=== PATIENT | female | born 1995 | race Hispanic/Latino ===

== ENCOUNTER 2018-02-14 11:16 | Emergency (ER) | payer MEDICAID, OTHER ==
[~2018-02-14 11:16] MED LIST: DOCU-116 PO; IBUP-2077 PO
[2018-02-14] MEDS ORDERED: ONDANSETRON ODT 4 MG TAB ONE (11:48)
[2018-02-14 12:01] LABS: BASOPHILS % (AUTO) 0.4 % (0.0-5.0); EOSINOPHILS % (AUTO) 0.9 % (0.0-8.0); HEMATOCRIT 41.1 % (36-48); LYMPHOCYTES % (AUTO) 17.1 % (21.0-51.0); MEAN CORPUSCULAR HEMOGLOBIN 27.9 pg (27.0-33.0); MONOCYTES % (AUTO) 4.7 % (3.0-13.0); NEUTROPHILS % (AUTO) 76.9 % (40.0-77.0); PLATELET COUNT (AUTO) 422 K/uL (130-400); RED BLOOD CELL COUNT(AUTO) 5.01 MIL/uL (4.00-5.50); RED CELL DISTRIBUTION WIDTH 13.3 % (11.0-15.5)
[2018-02-14 12:08] LABS: APPEARANCE,URINE Clear (CLEAR); BILIRUBIN,URINE Negative (NEGATIVE); COLOR,URINE Yellow (YELLOW); CREATININE 0.7 mg/dL (0.5-1.5); GLUCOSE, URINE (UA) Negative (NEGATIVE); KETONES,URINE Negative (NEGATIVE); LEUKOCYTE ESTERASE ,URINE Negative (NEGATIVE); NITRATE,URINE Negative (NEGATIVE); OCCULT BLOOD,URINE Negative (NEGATIVE); POTASSIUM 3.9 mmol/L (3.5-5.1); PROTEIN,URINE Negative (NEGATIVE); UROBILINOGEN,URINE 0.2 mg/dL (0.2-1.0)
[2018-02-14] MEDS ORDERED: SODIUM CHLORIDE 0.9% 1000ML 1,000 ML IV ONE (12:10)
[2018-02-14 12:11] LABS: HCG,QUAL RESULT NEGATIVE (NEGATIVE)
[2018-02-14 12:49] LABS: AMPHET/METH SCREEN,URINE NEGATIVE (NEGATIVE); BARBITURATE SCREEN, URINE NEGATIVE (NEGATIVE); BENZODIAZEPINES SCREEN,URINE NEGATIVE (NEGATIVE); CANNABINOID SCREEN,URINE NEGATIVE (NEGATIVE); COCAINE SCREEN,URINE NEGATIVE (NEGATIVE); OPIATE SCREEN,URINE NEGATIVE (NEGATIVE); PHENCYCLIDINE SCREEN,URINE NEGATIVE (NEGATIVE)
== END 2018-02-14 14:11 | disposition home or self-care (01) ==
LOC: EDH 11:16
DX: R55 Syncope and collapse (principal); R42 Dizziness and giddiness; R11.0 Nausea; F41.9 Anxiety disorder, unspecified
CPT/HCPCS: 36415; 80048; 80305; 81003; 81025; 85025; 93005; 96360; 99285; J7030

== ENCOUNTER 2018-08-01 14:04 | Emergency (ER) | payer BC | END 2018-08-01 14:39 | disposition home or self-care (01) | LOC: EDH 14:04 | DX: H10.023 Other mucopurulent conjunctivitis, bilateral (principal); R11.0 Nausea; Z98.890 Other specified postprocedural states ==

== ENCOUNTER 2019-12-09 20:15 | Emergency (ER) | payer BC | END 2019-12-09 21:07 | disposition home or self-care (01) | LOC: EDH 20:15 | DX: R42 Dizziness and giddiness (principal); R00.2 Palpitations; R20.2 Paresthesia of skin | CPT/HCPCS: 99281 ==

== ENCOUNTER 2022-10-25 17:28 | Emergency (ER) | payer BC, MEDICAID ==
[~2022-10-25] VITALS: Ht 162.6 cm; Wt 89.8 kg
[2022-10-25 17:46] VITALS: BP 121/58
[2022-10-25] MEDS ORDERED: ONDANSETRON 4MG INJ IVP ONE (19:30)
[2022-10-25] MEDS ORDERED: KETOROLAC 30MG VIAL (30MG/ML) IM ONE (19:30)
[2022-10-25] MEDS ORDERED: 0.9%NACL 1000ML 1,000 ML IV ONE (19:30)
[2022-10-25 19:39] LABS: BASOPHILS % (AUTO) 0.2 % (0.0-5.0); EOSINOPHILS % (AUTO) 0.1 % (0.0-8.0); HEMATOCRIT 42.4 % (36-48); LYMPHOCYTES % (AUTO) 8.2 % (21.0-51.0); MEAN CORPUSCULAR HEMOGLOBIN 27.5 pg (27.0-33.0); MEAN CORPUSCULAR HGB CONC 33.5 g/dL (32.0-36.0); MEAN CORPUSCULAR VOLUME 82.2 fL (79-99); MONOCYTES % (AUTO) 5.3 % (3.0-13.0); NEUTROPHILS % (AUTO) 85.7 % (40.0-77.0); PLATELET COUNT (AUTO) 371 K/uL (130-400); RED BLOOD CELL COUNT(AUTO) 5.16 MIL/uL (4.00-5.50); RED CELL DISTRIBUTION WIDTH 13.4 % (11.0-15.5); WHITE BLOOD COUNT (AUTO) 9.9 K/uL (4.8-10.8)
[2022-10-25 19:51] LABS: CREATININE 0.7 mg/dL (0.5-1.5); POTASSIUM 3.6 mmol/L (3.5-5.1)
[2022-10-25 19:54] LABS: ALBUMIN 3.9 g/dL (3.5-5.0); TOTAL PROTEIN, SERUM 7.7 g/dL (6.0-8.3)
[2022-10-25] MEDS ORDERED: ONDA4TAB10 PO (21:27)
[2022-10-25 21:48] LABS: APPEARANCE,URINE CLOUDY (CLEAR); BILIRUBIN,URINE NEGATIVE (NEGATIVE); COLOR,URINE YELLOW (YELLOW); GLUCOSE, URINE (UA) NEGATIVE (NEGATIVE); KETONES,URINE 60 mg/dL (NEGATIVE); LEUKOCYTE ESTERASE ,URINE 250 Leu/uL (NEGATIVE); NITRATE,URINE NEGATIVE (NEGATIVE); OCCULT BLOOD,URINE SMALL (NEGATIVE); PROTEIN,URINE 20 mg/dL (NEGATIVE); UROBILINOGEN,URINE 0.2 mg/dL (0.2-1.0)
[2022-10-25 21:53] LABS: HCG,QUALITATIVE URINE NEGATIVE (NEGATIVE)
[2022-10-25 21:55] LABS: BACTERIA,URINE RARE /HPF (None Seen); MUCUS,URINE FEW LPF (None Seen); SQUAMOUS EPITHELIAL CELL,UR MOD /HPF (0-2)
[2022-10-25] MEDS ORDERED: SULF1TAB42 PO (22:03)
== END 2022-10-25 22:22 | disposition home or self-care (01) ==
LOC: EDH 17:28
DX: K80.20 Calculus of gallbladder without cholecystitis without obstruction (principal); K76.89 Other specified diseases of liver; N39.0 Urinary tract infection, site not specified; R11.2 Nausea with vomiting, unspecified; Z79.899 Other long term (current) drug therapy
CPT/HCPCS: 99285; 96374; 76705; 96361; 80053; 84703; 83690; 85025; 87088; 81001; 81025; 36415; 96372; J7030; J2405; J1885

== ENCOUNTER 2024-05-07 06:21 | Inpatient (IN) | payer MEDICAID ==
[~2024-05-07] VITALS: Ht 162.6 cm; Wt 105.2 kg
[~2024-05-07 06:21] MED LIST changes: -DOCU-116 PO; -IBUP-2077 PO; +ONDA-243 PO; +SULF1TAB42 PO
[2024-05-07 06:56] LABS: MEAN CORPUSCULAR HEMOGLOBIN 28.6 pg (27.0-33.0); MEAN CORPUSCULAR VOLUME 81.6 fL (79-99); RED BLOOD CELL COUNT(AUTO) 4.41 MIL/uL (4.00-5.50); RED CELL DISTRIBUTION WIDTH 13.1 % (11.0-15.5); WHITE BLOOD COUNT (AUTO) 11.8 K/uL (4.8-10.8)
[2024-05-07] MEDS ORDERED: LIDOCAINE HCL 1% 20 ML VIAL ONE (07:00)
[2024-05-07] MEDS ORDERED: LACTATED RINGERS 1000ML 1,000 ML IV PRN (07:00)
[2024-05-07] MEDS ORDERED: MISOPROSTOL 200 MCG TABLET ONE (07:00)
[2024-05-07 07:07] LABS: APPEARANCE,URINE CLEAR (CLEAR); BILIRUBIN,URINE NEGATIVE (NEGATIVE); COLOR,URINE LIGHT-YELLOW (YELLOW); GLUCOSE, URINE (UA) NEGATIVE (NEGATIVE); KETONES,URINE 100 mg/dL (NEGATIVE); LEUKOCYTE ESTERASE ,URINE NEGATIVE Leu/uL (NEGATIVE); NITRATE,URINE NEGATIVE (NEGATIVE); OCCULT BLOOD,URINE MODERATE (NEGATIVE); PH,URINE 6.5 (5.0-8.0); PROTEIN,URINE 10 mg/dL (NEGATIVE); UROBILINOGEN,URINE 0.2 mg/dL (0.2-1.0)
[2024-05-07 07:09] LABS: ADD UA MICROSCOPIC YES
[2024-05-07 07:10] LABS: MUCUS,URINE RARE LPF (None Seen); SQUAMOUS EPITHELIAL CELL,UR FEW /HPF (0-2); WBC,URINE 0-1 /HPF (0-1)
[2024-05-07] MEDS ORDERED: ibuPROFEN 600 MG TABLET ONE (07:26)
[2024-05-07] MEDS: ibuPROFEN 600 MG TABLET PO PRN (07:27)
[2024-05-07] MEDS ORDERED: acetaMINOPHEN WITH coDEINE 1 TAB TAB PO PRN (07:30)
[2024-05-07] MEDS ORDERED: MEASLES/MUMPS/RUBELLA VACCINE, LIVE 0.5 ML/VIAL SQ PRN (07:30)
[2024-05-07] MEDS ORDERED: DIPH,PERTUSS(ACELL),TET VAC/PF 0.5 ML VIAL IM PRN (07:30)
[2024-05-07 09:05] LABS: HIV 1&2 ANTIBODY Non-Reactive (Negative)
[2024-05-07 09:06] LABS: HIV-1 p24 Antigen Non-Reactive (Negative)
[2024-05-07 09:46] LABS: RAPID PLASMA REAGIN NONREACTIVE (NONREACTIVE)
[2024-05-07 11:51] VITALS: BP 111/65; PULSE 68; RESP 18; TEMP 97.9
[2024-05-07] MEDS: BENZOCAINE/LANOLIN/ALOE VERA 60 ML AEROSOL TP PRN (12:28)
[2024-05-07] MEDS: acetaMINOPHEN 325 MG TAB PO PRN (12:28)
[2024-05-07] MEDS: LANOLIN 30GM OINTMENT TP PRN (12:29)
[2024-05-07] MEDS: WITCH HAZEL 1 PAD TP PRN (12:29)
[2024-05-07 15:40] VITALS: BP 107/71; PULSE 69; RESP 18; TEMP 97.8
[2024-05-07 19:29] VITALS: BP 115/69; PULSE 81; RESP 20; TEMP 97.1
[2024-05-07] MEDS: doCUSate SODIUM 100 MG CAP PO SCH (20:05)
[2024-05-07 23:36] VITALS: BP 108/64; PULSE 84; RESP 16; TEMP 97.7
[2024-05-08 03:29] VITALS: BP 137/75; PULSE 69; RESP 16; TEMP 97.3
[2024-05-08 07:07] LABS: MEAN CORPUSCULAR HEMOGLOBIN 27.5 pg (27.0-33.0); MEAN CORPUSCULAR HGB CONC 33.4 g/dL (32.0-36.0); MEAN CORPUSCULAR VOLUME 82.2 fL (79-99); RED BLOOD CELL COUNT(AUTO) 4.26 MIL/uL (4.00-5.50); RED CELL DISTRIBUTION WIDTH 13.3 % (11.0-15.5); WHITE BLOOD COUNT (AUTO) 10.1 K/uL (4.8-10.8)
[2024-05-08 07:58] VITALS: BP 107/71; PULSE 61; RESP 18; TEMP 97.9
[2024-05-08 11:52] VITALS: BP 125/68; PULSE 68; RESP 18; TEMP 98
== END 2024-05-08 14:00 | disposition home or self-care (01) | DRG 560 ==
LOC: EDH 06:21 → OBSVTOIN 06:22 → LDH 06:22 → WSH 15:22
PROVIDERS: ADMIT Obstetrics & Gynecology; ATTEND Obstetrics & Gynecology
PROC: 10E0XZZ Delivery of Products of Conception, External Approach (ICD-10-PCS; principal; 2024-05-07)
DX: O62.3 Precipitate labor (principal); Z37.0 Single live birth; Z3A.36 36 weeks gestation of pregnancy
CPT/HCPCS: 36415; 81001; 85027; 86592; 86701; 86850; 86900; 86901; 87340; 87390; G0378

== ENCOUNTER 2024-11-15 00:44 | Emergency (ER) | payer MEDICAID ==
[~2024-11-15] VITALS: Ht 160 cm; Wt 94.8 kg
--- NOTE | 2024-11-15 00:49 | NUR ---
UA CUP PROVIDED
[2024-11-15 01:23] LABS: BASOPHILS # (AUTO) 0.05 K/uL (0.00-0.20); BASOPHILS % (AUTO) 0.5 % (0.0-5.0); EOSINOPHILS # (AUTO) 0.17 K/uL (0.00-0.70); EOSINOPHILS % (AUTO) 1.6 % (0.0-8.0); HEMATOCRIT 38.8 % (36-48); IMMATURE GRANULOCYTE ABSOLUTE 0.04 K/uL (0-1); LYMPHOCYTES # (AUTO) 2.6 K/uL (1.0-4.8); LYMPHOCYTES % (AUTO) 23.9 % (21.0-51.0); MEAN CORPUSCULAR HEMOGLOBIN 28.4 pg (27.0-33.0); MEAN CORPUSCULAR HGB CONC 34.3 g/dL (32.0-36.0); MEAN CORPUSCULAR VOLUME 82.9 fL (79-99); MONOCYTES # (AUTO) 0.7 K/uL (0.1-1.0); MONOCYTES % (AUTO) 6.4 % (3.0-13.0); NEUTROPHILS # (AUTO) 7.3 K/uL (1.8-7.7); NEUTROPHILS % (AUTO) 67.2 % (40.0-77.0); PLATELET COUNT (AUTO) 391 K/uL (130-400); RED BLOOD CELL COUNT(AUTO) 4.68 MIL/uL (4.00-5.50); RED CELL DISTRIBUTION WIDTH 12.7 % (11.0-15.5); WHITE BLOOD COUNT (AUTO) 10.9 K/uL (4.8-10.8)
--- NOTE | 2024-11-15 01:25 | ERN ---
ED Note History of Present Illness Stated Complaint: EPIGASTRIC PAIN Chief Complaint: Abdominal Pain Time Seen by MD: 00:50 Dictation: This is a 29-year-old female who presented to the emergency room with severe epigastric pain and chest pain feeling hot with the pain radiating to the back. She stated that this started 15 minutes prior to the presentation to the ER and woke her from sleep she felt hot across the chest and even tried a shower which did not help. No nausea vomitings. No history of any hematemesis or melena. She ate hot Cheetos and ate a steak also had alcoholic drink. Patient has a history of drinking large amounts of coffee at least 3 to 4 times a day. Last coffee is before she goes to bed. Temperature 98 pulse 76 respirations 18 blood pressure 119/79 with a pulse oximetry of 98% on room air Allergies: Coded Allergies: No Known Allergies (Verified Allergy, Unknown, 07/10/17) No Known Drug Allergies (Unverified Allergy, Unknown, 07/10/17) Past Medical History Past Medical History: No Pertinent History Surgical History: Other Surgical History Other: eye surgery torn retina left, BREAST Family History: Negative Social History: ETOH LMP: Oct 31, 2024 : 5 Para: 5 Aborts: 0 RN Note Reviewed/Agreed w/PFSH: Yes Review of System Dictation Constitutional: Negative for fever,chills, and weight loss Eyes: Negative for injury, pain,redness, and discharge ENT: Negative for injury,pain or swelling Cardiovascular: Negative for chest pain, palpitations, and edema Respiratory: Negative for shortness of breath, cough, and wheezing, Abdomen/GI: Positive for epigastric abdominal pain with burning, denies nausea, vomiting, diarrhea, and constipation Back: Negative for injury and pain : Negative for injury, bleeding and discharge MS/Extremity: Negative for injury and deformity Skin: Negative for rash, and discoloration Neuro: Negative for headache, weakness, numbness, tingling, and seizure Psych: Negative for suicide ideation, homicidal ideation, and hallucinations Initial Vital Sign VS Vital Signs Date Time Temp Pulse Resp B/P (MAP) Pulse Ox O2 Delivery O2 Flow Rate FiO2 11/15/24 00:45 98.1 76 18 119/79 98 Room Air Physical Exam Dictation General: awake, alert, NAD obese female Head/Face: Normocephalic, atraumatic Eyes: PERRL, EOMI, vision at baseline ENT: oral cavity clear, TMs clear, no signs of infection Neck: Trachea midline, supple, no nuchal rigidity Cardiovascular: RRR, normal S1/S2, No MRGs, no JVD Respiratory: CTAB, no respiratory distress, No rales or wheezes Abdomen: Soft, mild epigastric tenderness r, non-distended, normal bowel sounds, no guarding or rebound. Skin: Warm, dry, normal turgor, no rash MS/Extremity: Pulses equal, no cyanosis, neurovascular intact, FROM Neuro: COAx4, GCS 15, strength 5/5, CN 2-12 intact, normal cerebellar exam, normal gait, Psych: Normal behavior, mood, and affect normal Extremities-trace edema without any palpable cords, Homans sign is negative Results (Laboratory/Radiology) Laboratory/Radiology Laboratory Tests Test 11/15/24 01:17 White Blood Count 10.9 K/uL (4.8-10.8) H Red Blood Count 4.68 MIL/uL (4.00-5.50) Hemoglobin 13.3 g/dL (12.0-16.0) Hematocrit 38.8 % (36-48) Mean Corpuscular Volume 82.9 fL (79-99) Mean Corpuscular Hemoglobin 28.4 pg (27.0-33.0) Mean Corpuscular Hemoglobin Concent 34.3 g/dL (32.0-36.0) Red Cell Distribution Width 12.7 % (11.0-15.5) Platelet Count 391 K/uL (130-400) Mean Platelet Volume 9.1 fL (7.5-10.5) Immature Granulocyte % (Auto) 0.4 % (0-1) Neutrophils (%) (Auto) 67.2 % (40.0-77.0) Lymphocytes (%) (Auto) 23.9 % (21.0-51.0) Monocytes (%) (Auto) 6.4 % (3.0-13.0) Eosinophils (%) (Auto) 1.6 % (0.0-8.0) Basophils (%) (Auto) 0.5 % (0.0-5.0) Neutrophils # (Auto) 7.3 K/uL (1.8-7.7) Lymphocytes # (Auto) 2.6 K/uL (1.0-4.8) Monocytes # (Auto) 0.7 K/uL (0.1-1.0) Eosinophils # (Auto) 0.17 K/uL (0.00-0.70) Basophils # (Auto) 0.05 K/uL (0.00-0.20) Absolute Immature Granulocyte (auto 0.04 K/uL (0-1) Nucleated Red Blood Cells 0.0 % (0.0-0.19) Sodium Level 136 mmol/L (136-145) Potassium Level 3.5 mmol/L (3.5-5.1) Chloride Level 101 mmol/L (101-111) Carbon Dioxide Level 30 mmol/L (21-32) Blood Urea Nitrogen 19 mg/dL (7-18) H Creatinine 1.0 mg/dL (0.5-1.0) Glomerular Filtration Rate Calc 77 mL/min (>90) Random Glucose 110 mg/dL (70-105) H Total Calcium 8.6 mg/dL (8.5-10.1) Total Bilirubin 0.4 mg/dL (0.2-1.0) Direct Bilirubin 0.1 mg/dL (0.0-0.3) Aspartate Amino Transf (AST/SGOT) 36 U/L (10-37) Alanine Aminotransferase (ALT/SGPT) 34 U/L (12-78) Alkaline Phosphatase 77 U/L (50-136) Total Protein 7.4 g/dL (6.0-8.3) Albumin 3.6 g/dL (3.5-5.0) Lipase 55 U/L (16-77) Serum Test, Qualitative NEGATIVE (NEGATIVE) Labs Reviewed?: Yes ED Course ED Course Orders Procedure Category Date Status Time Cbc With Differential LAB 11/15/24 Complete 01:02 Basic Metabolic Panel LAB 11/15/24 Complete 01:02 Hepatic Function Panel LAB 11/15/24 Complete 01:02 Testing, LAB 11/15/24 Complete Serum Hcg 01:02 Lipase LAB 11/15/24 Complete 01:02 Morphine 2mg Syg PHA 11/15/24 Complete (Morphine 2mg Syg) 02:00 Lidocaine Hcl 2% PHA 11/15/24 Complete Viscous (Lidocaine Hcl 02:00 Mag/Alum/Simeth 30ml PHA 11/15/24 Complete (Maalox Plus 30ml) 02:00 Pantoprazole 40mg Inj PHA 11/15/24 Complete (Protonix 40mg Inj 02:00 Dicyclomine Hcl PHA 11/15/24 Complete (Bentyl 10mg/5ml 02:00 Current Medications Medications (Trade) Dose Ordered Sig/La Route PRN Reason Start Time Stop Time Status Last Admin Dose Admin Al Hydroxide/Mg Hydroxide (MAALox PLUS 30ML) 30 ml ONCE ONCE PO 11/15/24 02:00 11/15/24 02:01 DC 11/15/24 01:44 Dicyclomine HCl (Bentyl 10mg/5ml Syrup) 10 mg ONCE ONCE PO 11/15/24 02:00 11/15/24 02:01 DC 11/15/24 01:44 Lidocaine HCl (Lidocaine HCl 2% Viscous) 10 ml ONCE ONCE PO 11/15/24 02:00 11/15/24 02:01 DC 11/15/24 01:45 Morphine Sulfate (morPHINE 2MG SYG) 2 mg ONCE ONCE IVP 11/15/24 02:00 11/15/24 02:01 DC 11/15/24 01:45 Pantoprazole Sodium (PROTonix 40MG INJ) 40 mg ONCE ONCE IVP 11/15/24 02:00 11/15/24 02:01 DC 11/15/24 01:44 Vital Signs Date Time Temp Pulse Resp B/P (MAP) Pulse Ox O2 Delivery O2 Flow Rate FiO2 11/15/24 00:45 98.1 76 18 119/79 98 Room Air We will perform diagnostic labs, advanced imaging and administer medications according to the patient's complaint. Once the results are available, will review and personally interpreted the labs to rule out any acute life- threatening emergency the trach require immediate intervention and treatment. I will then re-evaluate the patient after treatment and diagnostic exams have return to determine whether the patient requires any further testing, can safely be discharged home or need further admission to hospital for additional treatment and evaluation. 1:38 a.m. CBC showed a white count of 10.9 hemoglobin 13.3 platelets 391. BNP 7 is significant for BUN and creatinine of 19 and 1.0 potassium 3.5 Trial of PPI and pain medicine counseled her extensively on reducing the caffeine and caffeinated drinks. 2:42 a.m. admits to feeling significantly better we will send her home on a PPI Medical Decision Making MDM MDM: Differential diagnosis: Gastritis, esophagitis, gastroesophageal reflux, biliary colic, pancreatitis Rationale: Tests considered and ordered secondary to shared decision making include: Previous outside records reviewed: Old ER visits. Risk of complication and/or morbidity or mortality of patient management: None Medications-Per medication reconciliation Need for hospitalization: Patient does not meet criteria for hospitalization. Need for emergency major/minor surgery: No There are no social concerns with this patient. Prescription drug management Prescriptions will include symptomatic care Patient's prior external medical records from other ER visits were reviewed by me as indicated. Prior testing and results from previous visits were reviewed. Prior tests were taken into account with medical decision making and resource utilization, independent historian/historians were used to obtain complete medical history. I independently interpreted the test that were performed, results were reviewed by me and considered findings on radiology if ordered. Medical management and examination interpretation discussions were had by me with other qualified healthcare professionals as indicated for the patient's care. Problem List Problem List: (1) Gastritis (2) Esophagitis DX & DISP Disposition: Discharge Departure Impression: Primary Impression: Gastritis Additional Impression: Esophagitis Condition: Stable Scripts Omeprazole (Omeprazole) 40 Mg Capsule.dr 1 CAP PO DAILY for 30 Days, #30 CAP 0 Refills Prov: DOROTHY ARNOLD MD 11/15/24 Additional Instructions: Patient and the caregiver have been informed of all the diagnostic tests and the imaging conducted during the today's visit to the emergency room and has verbalized understanding of the results I have personally reviewed and interpreted all diagnostic exams performed here in the ER today as well as the vital signs documented by the nursing staff. The patient is now being discharged to home and should follow up with the primary care physician or the specialist as directed by the ER staff. Follow-up with primary care provider in 1 to 2 days. Take medications as directed here in the emergency room. Okay to continue home medications unless otherwise discussed during your visit in the emergency room today. Return to your nearest emergency room if symptoms worsen or if there is no improvement. Call 911 if you need immediate assistance. Take Tylenol or Motrin oxuj-dee-iuew ter as needed and if no contraindications are present. Increase oral hydration. A wound culture or urine culture was ordered here in the emergency room department please follow-up with primary care provider and advise them to get repeat ports from our facility. If you had any Joshua wrap/splints that were applied here, please do not remove them until you see your primary care or sp ecialty. Referrals: JEANNIE BIANCHI MD (PCP) DOROTHY ARNOLD MD Nov 15, 2024 01:25
[2024-11-15 01:31] LABS: POTASSIUM 3.5 mmol/L (3.5-5.1)
[2024-11-15 01:35] LABS: ALBUMIN 3.6 g/dL (3.5-5.0); BILIRUBIN,DIRECT 0.1 mg/dL (0.0-0.3); BILIRUBIN,TOTAL 0.4 mg/dL (0.2-1.0); TOTAL PROTEIN, SERUM 7.4 g/dL (6.0-8.3)
[2024-11-15] MEDS: MAG/ALUM/SIMETH 30 ML UDCUP PO ONE (01:44)
[2024-11-15] MEDS: DICYCLOMINE HCL 10 MG/5 ML ML PO ONE (01:44)
[2024-11-15] MEDS: PANTOPrazole 40 MG/VIAL IVP ONE (01:44)
[2024-11-15] MEDS: LIDOCAINE HCL 2% VISCOUS 15 ML UDCUP PO ONE (01:45)
[2024-11-15] MEDS: morPHINE 2 MG SYG IVP ONE (01:45)
[2024-11-15] MEDS ORDERED: OMEP40CA21 PO (02:42)
[2024-11-15 02:44] VITALS: BP 121/83; PULSE 80; RESP 18; TEMP 98.4; O2SAT 99
== END 2024-11-15 02:50 | disposition home or self-care (01) ==
LOC: EDH 00:44
DX: K29.70 Gastritis, unspecified, without bleeding (principal); K20.90 Esophagitis, unspecified without bleeding; Z98.890 Other specified postprocedural states
CPT/HCPCS: 99284; 96374; 96375; 80076; 80048; 84703; 83690; 85025; 36415; J2270; J2470

== ENCOUNTER 2025-02-13 23:58 | Emergency (ER) | payer MEDICAID ==
[~2025-02-13] VITALS: Ht 162.6 cm; Wt 97.5 kg
[~2025-02-13 23:58] MED LIST changes: +OMEP40CA21 PO; -ONDA-243 PO; -SULF1TAB42 PO
[2025-02-14 00:37] VITALS: BP 108/56; PULSE 89; RESP 18; TEMP 98.8; O2SAT 99
[2025-02-14 00:52] LABS: BASOPHILS # (AUTO) 0.04 K/uL (0.00-0.20); BASOPHILS % (AUTO) 0.4 % (0.0-5.0); EOSINOPHILS # (AUTO) 0.16 K/uL (0.00-0.70); EOSINOPHILS % (AUTO) 1.6 % (0.0-8.0); HEMATOCRIT 38.3 % (36-48); IMMATURE GRANULOCYTE ABSOLUTE 0.03 K/uL (0-1); LYMPHOCYTES # (AUTO) 2.9 K/uL (1.0-4.8); LYMPHOCYTES % (AUTO) 28.7 % (21.0-51.0); MEAN CORPUSCULAR HEMOGLOBIN 27.7 pg (27.0-33.0); MEAN CORPUSCULAR HGB CONC 33.7 g/dL (32.0-36.0); MEAN CORPUSCULAR VOLUME 82.2 fL (79-99); MONOCYTES # (AUTO) 0.8 K/uL (0.1-1.0); MONOCYTES % (AUTO) 7.5 % (3.0-13.0); NEUTROPHILS # (AUTO) 6.3 K/uL (1.8-7.7); NEUTROPHILS % (AUTO) 61.5 % (40.0-77.0); PLATELET COUNT (AUTO) 374 K/uL (130-400); RED BLOOD CELL COUNT(AUTO) 4.66 MIL/uL (4.00-5.50); RED CELL DISTRIBUTION WIDTH 13.2 % (11.0-15.5); WHITE BLOOD COUNT (AUTO) 10.2 K/uL (4.8-10.8)
[2025-02-14 00:56] LABS: CREATININE 0.9 mg/dL (0.5-1.0); POTASSIUM 3.8 mmol/L (3.5-5.1)
[2025-02-14 01:00] LABS: ALBUMIN 3.8 g/dL (3.5-5.0); APPEARANCE,URINE CLEAR (CLEAR); BILIRUBIN,DIRECT 0.1 mg/dL (0.0-0.3); BILIRUBIN,TOTAL 0.4 mg/dL (0.2-1.0); BILIRUBIN,URINE NEGATIVE (NEGATIVE); GLUCOSE, URINE (UA) NEGATIVE (NEGATIVE); KETONES,URINE NEGATIVE (NEGATIVE); LEUKOCYTE ESTERASE ,URINE NEGATIVE Leu/uL (NEGATIVE); NITRATE,URINE NEGATIVE (NEGATIVE); OCCULT BLOOD,URINE NEGATIVE (NEGATIVE); PROTEIN,URINE NEGATIVE (NEGATIVE); SQUAMOUS EPITHELIAL CELL,UR RARE /HPF (0-2); TOTAL PROTEIN, SERUM 7.4 g/dL (6.0-8.3); UROBILINOGEN,URINE 0.2 mg/dL (0.2-1.0); WBC,URINE 0-1 /HPF (0-1)
[2025-02-14 01:02] LABS: COLOR,URINE Light-Yellow (YELLOW); HCG,QUALITATIVE URINE NEGATIVE (NEGATIVE)
--- NOTE | 2025-02-14 01:49 | ERN ---
General Chief Complaint: Abdominal Pain Stated Complaint: C/O RUQ PAIN RADIATING TO BACK X 4 DAYS Time Seen by MD: 00:02 Time Seen by Midlevel: 00:02 Source: patient History of Present Illness Initial Comments 29-year-old female who presents to the emergency department due to abdominal pain onset four days. Patient reports pain radiates to the back but denies any nausea, vomiting, dysuria, chest pain, diarrhea or further associated symptoms. Patient states she has a history of gastritis but denies any further significant past medical history. Patient has been taking [id number] medication for the pain. Allergies: Coded Allergies: No Known Allergies (Verified Allergy, Unknown, 07/10/17) No Known Drug Allergies (Unverified Allergy, Unknown, 07/10/17) Home Meds Active Scripts Omeprazole (Omeprazole) 40 Mg Capsule.dr, 1 CAP PO DAILY for 30 Days, #30 CAP 0 Refills Prov:DOROTHY ARNOLD MD 11/15/24 Past Medical History Past Medical History: No Pertinent History Past Surgical History: Other Surgical History Other: BREAST AUGMENTATION; TUBAL LIGATION Family History Family History: Negative Social History Social History: ETOH Female( History) LMP: January 23, 2025 : 5 Para: 5 Aborts: 0 ROS Dictation Constitutional: Negative for fever,chills, and weight loss Eyes: Negative for injury, pain,redness, and discharge ENT: Negative for injury,pain or swelling Cardiovascular: Negative for chest pain, palpitations, and edema Respiratory: Negative for shortness of breath, cough, and wheezing, Abdomen/GI: Positive for abdominal pain Negative for nausea, vomiting, diarrhea, and constipation Back: Negative for injury and pain : Negative for painful urination, bleeding or discharge MS/Extremity: Negative for injury and deformity Skin: Negative for rash, and discoloration Neuro: Negative for headache, weakness, numbness, tingling, and seizure Psych: Negative for suicide ideation, homicidal ideation, and hallucinations Physical Exam Physical Exam Dictation General: awake, alert, no acute distress Head/Face: Normocephalic, atraumatic Eyes: PERRL, EOMI, normal conjunctiva ENT: oral cavity clear, oral mucosa moist Neck: Supple, normal range of motion Cardiovascular: RRR, normal S1/S2 Respiratory: CTAB, no respiratory distress Abdomen: Soft, non-tender, non-distended, no guarding or rebound. Skin: Warm, dry, normal turgor, no rash MS/Extremity: Pulses equal, no cyanosis, neurovascular intact, FROM Neuro: COAx4, GCS 15, strength 5/5, CN 2-12 intact, normal cerebellar exam, normal gait Psych: Normal behavior, mood, and affect normal Results Laboratory and Microbiology Lab and Micro Result Laboratory Tests Test 02/14/25 00:30 White Blood Count 10.2 K/uL (4.8-10.8) Red Blood Count 4.66 MIL/uL (4.00-5.50) Hemoglobin 12.9 g/dL (12.0-16.0) Hematocrit 38.3 % (36-48) Mean Corpuscular Volume 82.2 fL (79-99) Mean Corpuscular Hemoglobin 27.7 pg (27.0-33.0) Mean Corpuscular Hemoglobin Concent 33.7 g/dL (32.0-36.0) Red Cell Distribution Width 13.2 % (11.0-15.5) Platelet Count 374 K/uL (130-400) Mean Platelet Volume 9.2 fL (7.5-10.5) Immature Granulocyte % (Auto) 0.3 % (0-1) Neutrophils (%) (Auto) 61.5 % (40.0-77.0) Lymphocytes (%) (Auto) 28.7 % (21.0-51.0) Monocytes (%) (Auto) 7.5 % (3.0-13.0) Eosinophils (%) (Auto) 1.6 % (0.0-8.0) Basophils (%) (Auto) 0.4 % (0.0-5.0) Neutrophils # (Auto) 6.3 K/uL (1.8-7.7) Lymphocytes # (Auto) 2.9 K/uL (1.0-4.8) Monocytes # (Auto) 0.8 K/uL (0.1-1.0) Eosinophils # (Auto) 0.16 K/uL (0.00-0.70) Basophils # (Auto) 0.04 K/uL (0.00-0.20) Absolute Immature Granulocyte (auto 0.03 K/uL (0-1) Nucleated Red Blood Cells 0.0 % (0.0-0.19) Urine Color Light-Yellow (YELLOW) Urine Appearance CLEAR (CLEAR) Urine pH 7.0 (5.0-8.0) Urine Specific [place] 1.006 (1.001-1.031) Urine Protein NEGATIVE mg/dL (NEGATIVE) Urine Glucose (UA) NEGATIVE mg/dL (NEGATIVE) Urine Ketones NEGATIVE mg/dL (NEGATIVE) Urine Occult Blood NEGATIVE (NEGATIVE) Urine Nitrate NEGATIVE (NEGATIVE) Urine Bilirubin NEGATIVE mg/dL (NEGATIVE) Urine Urobilinogen 0.2 mg/dL (0.2-1.0) Urine Leukocyte Esterase NEGATIVE Hari/uL Urine RBC 2-5 /HPF (0-1) H Urine WBC 0-1 /HPF (0-1) Urine Squamous Epithelial Cells RARE /HPF (0-2) Urine Bacteria None /HPF (None Seen) Urine HCG, Qualitative NEGATIVE (NEGATIVE) Sodium Level 139 mmol/L (136-145) Potassium Level 3.8 mmol/L (3.5-5.1) Chloride Level 103 mmol/L (101-111) Carbon Dioxide Level 31 mmol/L (21-32) Blood Urea Nitrogen 19 mg/dL (7-18) H Creatinine 0.9 mg/dL (0.5-1.0) Glomerular Filtration Rate Calc 88 mL/min (>90) Random Glucose 95 mg/dL (70-105) Total Calcium 8.5 mg/dL (8.5-10.1) Total Bilirubin 0.4 mg/dL (0.2-1.0) Direct Bilirubin 0.1 mg/dL (0.0-0.3) Aspartate Amino Transf (AST/SGOT) 13 U/L (10-37) Alanine Aminotransferase (ALT/SGPT) 24 U/L (12-78) Alkaline Phosphatase 75 U/L (50-136) Total Protein 7.4 g/dL (6.0-8.3) Albumin 3.8 g/dL (3.5-5.0) Lipase 51 U/L (16-77) Labs Reviewed?: Yes MDM MDM: Differential diagnosis: Cholelithiasis, cholecystitis, fatty liver, gastritis Rationale: 29-year-old female who presents to the emergency department due to abdominal pain onset four days. Patient reports pain radiates to the back but denies any nausea, vomiting, dysuria, chest pain, diarrhea or further associated symptoms. Patient states she has a history of gastritis but denies any further significant past medical history. Patient has been taking [id number] medication for the pain. Per physical examination patient is in no acute distress, abdomen is soft nontender. Labs obtained CBC is nonspecific without leukocytosis, chemistries within normal limits, LFTs within normal limits, lipase within normal limits. UA negative for urinary tract infection. Negative . Right upper quadrant ultrasound obtained showing echogenicity of the liver with multiple hyperechoic nodules, multiple gallbladder stones, without any gallbladder wall thickening. Patient was offered pain medication on initial assessment however patient stated she did not need any at the moment. Patient was educated on findings and diagnosis. Advised to follow up with PCP. Return to the emergency department if any worsening symptoms. Patient verbalized understanding. Patient stable for discharge. There are no social concerns with this patient. I independently interpreted the test that were performed, results were reviewed by me and considered findings on radiology if ordered. Medical management and examination interpretation discussions were had by me with other qualified healthcare professionals as indicated for the patient's care. ED Course Orders Procedure Category Date Status Time Cbc With Differential LAB 02/14/25 Complete 00:06 Basic Metabolic Panel LAB 02/14/25 Complete 00:06 Urinalysis LAB 02/14/25 Complete W/Microscopic 00:06 Lipase LAB 02/14/25 Complete 00:06 Hepatic Function Panel LAB 02/14/25 Complete 00:06 ,Urine Test LAB 02/14/25 Complete 00:06 Us Abdominal Ruq\Ltd US 02/14/25 Taken 00:29 Vital Signs Date Time Temp Pulse Resp B/P (MAP) Pulse Ox O2 Delivery O2 Flow Rate FiO2 02/14/25 00:37 98.8 89 18 108/56 99 Room Air* 0 21 02/14/25 00:01 98.2 74 20 121/76 98 Room Air DX & DISP Disposition: Discharge Departure Impression: Primary Impression: Cholelithiasis Condition: Stable Additional Instructions: Discharge home. Rest. Follow up with primary care in 24 hours. Return to the ER for any acute changes or worsening symptoms. If any medications were prescribed take as directed. Okay to continue home medications unless otherwise discussed during your visit in the emergency room today. Patient was also advised to follow-up with primary care physician in 1 to 2 days for continued monitoring. Referrals: Bk LANCE MD (PCP) I performed the substantive portion of the visit. I have reviewed and personally made and approve the management plan that is documented in the notes by myself or the [facility]. I acknowledge full responsibility for the patient's management plan. ZOILA BOYER Feb 14, 2025 01:49
--- NOTE | 2025-02-14 10:29 | HMCIMG ---
US ABDOMINAL RUQ\E\LTD HISTORY: Pain COMPARISON: 10/25/2022 TECHNIQUE: Right upper quadrant abdominal ultrasound study was performed. FINDINGS: Liver measures 15.5 cm. There are hypoechoic nodules noted within the liver with the largest measuring 3.8 cm. These were seen on previous study with slight interval increase in size and clinical correlation is recommended.. The study is limited due to overlying bowel gas. Pancreas not well seen due to overlying bowel gas. Liver is echogenic consistent with liver parenchymal disease. Gallstones are seen in the gallbladder. Common duct measures 4 mm. No evidence of gallbladder wall thickening is seen. Right kidney measures 11.2 x 4.6 x 4.6 cm. No hydronephrosis is seen of the right kidney. IMPRESSION: 1. Gallstones. No ductal dilatation is seen. Hyperechoic nodules in the liver also present on previous study with interval increase in size. 2. No hydronephrosis is seen.
== END 2025-02-14 02:15 | disposition home or self-care (01) ==
LOC: EDH 23:58
DX: K80.20 Calculus of gallbladder without cholecystitis without obstruction (principal); Z79.899 Other long term (current) drug therapy; Z98.51 Tubal ligation status
CPT/HCPCS: 36415; 76705; 80048; 80076; 81001; 81025; 83690; 85025; 99284